=== PATIENT | female | born 1950 | race Caucasian/White ===

== ENCOUNTER 2022-12-13 13:29 | Day surgery (SDC) | payer MEDICARE ==
[~2022-12-13] VITALS: Ht 162.6 cm; Wt 91.5 kg
[~2022-12-13 13:29] MED LIST: AMLO2.5T3 PO; CALCCHW4 PO; FLEC25TA PO; LISI20TA33 PO; LORA1TAB23 PO; METO1TAB33 PO; NEXI40CA PO; OMEG10002 PO; PRAD150C6 PO; VANCOMYCIN HCL 750 MG, VIAL MATE ADAPTER 1 EACH in D5W 250 ML IV ONE; VITMTA PO
[2022-12-13] MEDS ORDERED: LIDOCAINE 1% SDV 30ML VIAL As Ordered ONE (13:49)
[2022-12-13] MEDS ORDERED: LR 1,000 ML IV SCH (13:55)
[2022-12-13] MEDS ORDERED: MIDAZOLAM INJ 2MG/2ML VIAL As Ordered ONE (15:29)
[2022-12-13] MEDS ORDERED: propofoL 200 MG/20 ML VIAL As Ordered ONE ×2 (15:29→16:34)
[2022-12-13] MEDS ORDERED: LIDOCAINE 2% 100MG/5ML SDV (FOR ANES.) As Ordered ONE (15:29)
[2022-12-13] MEDS ORDERED: fentaNYL 100 MCG/2 ML INJECTION As Ordered ONE (15:29)
[2022-12-13 17:48] VITALS: BP 183/99; TEMP 97; O2SAT 98
== END 2022-12-13 18:00 | disposition home or self-care (01) ==
LOC: M SDC 13:29
PROVIDERS: ATTEND Internal Medicine Cardiovascular Disease
DX: T82.111A Breakdown (mechanical) of cardiac pulse generator (battery), initial encounter (principal); I10 Essential (primary) hypertension; I48.0 Paroxysmal atrial fibrillation; E03.9 Hypothyroidism, unspecified; I49.5 Sick sinus syndrome; Z79.899 Other long term (current) drug therapy; Z88.0 Allergy status to penicillin; Z88.1 Allergy status to other antibiotic agents
CPT/HCPCS: 33228; C1785; J2250; J3010